=== PATIENT | male | born 1955 | race Caucasian/White ===

== ENCOUNTER → 2018-10-23 | Emergency (ER) | payer SELFPAY ==
[~2018-10-23] VITALS: Ht 180.3 cm; Wt 79.4 kg
[~2018-10-23] MED LIST: ADMELOG100 UNIT/1 IV; COZAAR25 MG PO; FLOMAX0.4 MG PO; GLUCOPHAGE1000 MG PO; HUMALOG100 UNIT/1 SUB-Q; METFORMIN HCL1000 MG PO; ZOCOR20 MG PO
--- OUTSIDE RECORDS SUMMARY | 2018-10-23 23:54 | XMS ---
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 Nicole has no Care Guidelines for this patient. E.DJo VISIT COUNT (12 MO.) 2 [facility] TOTAL 2 NOTE: Visits indicate total known visits. 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
== END | disposition home or self-care (01) ==
LOC: ED 23:53
DX: E11.65 Type 2 diabetes mellitus with hyperglycemia (principal); F17.200 Nicotine dependence, unspecified, uncomplicated; Z79.4 Long term (current) use of insulin; Z79.899 Other long term (current) drug therapy
CPT/HCPCS: 99283; J1815

== ENCOUNTER 2020-08-27 12:45 | Emergency (ER) | payer SELFPAY ==
--- OUTSIDE RECORDS SUMMARY | 2020-08-27 12:48 | XMS ---
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 ED/UCC VISIT TRACKING (12 MO.) 08/27/2020 12:45 [facility] Li TYPE: Emergency COMPLAINT: - BLOOD SUGAR PROBLEM 08/10/2020 21:14 Chema NORMAN TYPE: Emergency COMPLAINT: - AMB/CHESP PAIN/MEDICAL CLEARANCE 08/09/2020 14:11 Martin MEZA TYPE: Emergency DIAGNOSES: - Chest pain, unspecified 08/04/2020 00:38 Martin MEZA TYPE: Emergency 07/24/2020 09:10 [facility] Sanjiv MEZA M.C[facility] TYPE: Emergency DIAGNOSES: - Other chest pain - Chest Pain INPATIENT VISIT TRACKING (12 MO.) 08/09/2020 14:11 Martin MEZA TYPE: Medical Surgical DIAGNOSES: - Other stimulant abuse, uncomplicated - Restlessness and agitation - Chest pain, unspecified [email or web address]
== END 2020-08-27 13:15 | disposition left against medical advice (07) ==
LOC: ED 12:45
DX: Z53.21 Procedure and treatment not carried out due to patient leaving prior to being seen by health care provider (principal)

== ENCOUNTER 2020-08-29 22:42 | Emergency (ER) | payer SELFPAY ==
[~2020-08-29] VITALS: Ht 180.3 cm; Wt 79.4 kg
--- OUTSIDE RECORDS SUMMARY | 2020-08-29 22:44 | XMS ---
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 No recent Security Events currently on file CRITERIA MET - Group Notification - 6 ED Visits in 6 Months - [facility] - 3 Facilities in 90 Days - [facility] - 2 Visits in 30 Days CARE PROVIDERS QUINN HERRERA in an Organized Health Care Education/Training Current Program PHONE: [phone] Care Guidelines exist for the following facilities: [facility] ( 03/18/2019 ) Sam VISIT COUNT (12 MO.) 2 [facility] 2 [facility] TOTAL 6 NOTE: Visits indicate total known visits. ED/UCC VISIT TRACKING (12 MO.) 08/29/2020 22:43 [facility] [place] TYPE: Emergency COMPLAINT: - HIGH BLOOD SUGAR 08/27/2020 12:45 [facility] [place] TYPE: Emergency COMPLAINT: - BLOOD SUGAR PROBLEM 08/10/2020 21:14 Chema NORMAN TYPE: Emergency COMPLAINT: - AMB/CHESP PAIN/MEDICAL CLEARANCE 08/09/2020 14:11 Martin MEZA TYPE: Emergency DIAGNOSES: - Chest pain, unspecified 08/04/2020 00:38 Martin MEZA TYPE: Emergency 07/24/2020 09:10 [facility] Sanjiv MEZA M.C[facility] TYPE: Emergency DIAGNOSES: - Other chest pain - Chest Pain INPATIENT VISIT TRACKING (12 MO.) 08/09/2020 14:11 Martin MEZA TYPE: Medical Surgical DIAGNOSES: - Other stimulant abuse, uncomplicated - Restlessness and agitation - Chest pain, unspecified [email or web address]
[2020-08-29] MEDS ORDERED: LIPITOR20 MG (23:06)
[2020-08-29] MEDS ORDERED: LISINOPRIL10 MG PO (23:07)
[2020-08-29] MEDS ORDERED: LANTUS100 UNITS/ SUB-Q (23:07)
[2020-08-29] MEDS ORDERED: ASPIRIN81 MG PO (23:07)
[2020-08-29] MEDS ORDERED: HUMULIN R100 UNIT/1 INJ (23:09)
--- NOTE | 2020-08-30 07:47 | EKG ---
[facility] [address] [place] [address] Signed Sinus tachycardia Possible Left atrial enlargement Borderline ECG When compared with ECG of 09-OCT-2018 16:18, No significant change was found Confirmed by AUDREY BACK MD ([id number]) on 08/30/2020 7:47:32 AM Electronically Signed By: AUDREY BACK MD 08/30/20 0747 PATIENT NAME: JAMEY BLACK CITLALLI Electrocardiogram DATE OF : 53 PHYSICIAN: AUDREY BACK MD REPORT #: [id number] REPORT IS CONFIDENTIAL AND NOT TO BE RELEASED WITHOUT AUTHORIZATION
== END 2020-08-29 23:21 | disposition left against medical advice (07) ==
LOC: ED 22:42
DX: Z53.21 Procedure and treatment not carried out due to patient leaving prior to being seen by health care provider (principal)
CPT/HCPCS: 71045; 80053; 82803; 84484; 85025; 93005; 93010